=== PATIENT | female | born 1985 | race African-American/Black ===

== ENCOUNTER 2019-06-23 21:16 | Emergency (ER) | payer SELFPAY ==
[2019-06-23] MEDS ORDERED: Ketorolac 30 MG/ML SDV IM ONE (22:11)
[2019-06-23] MEDS ORDERED: Metoclopramide 5 MG Tab PO ONE (22:11)
--- NOTE | 2019-06-23 22:24 | EDM.PDOC ---
ED HPI GENERAL MEDICAL PROBLEM - General Chief Complaint: Respiratory Problem Stated Complaint: FLU LIKE SYMTOMS Time Seen by Provider: 06/23/19 22:21 Source of Information: Reports: Patient History Limitations: Reports: No Limitations - History of Present Illness INITIAL COMMENTS - FREE TEXT/NARRATIVE: Patient is a 34-year-old female with past medical history of PCOS presenting with a chief complaint of headache, body ache, myalgias, cough. Patient states that she has had the symptoms since and they have progressively worsened. Patient reports taking Tylenol [id number] with minimal relief. 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 Patient had a strep test done the day which is negative. Patient has no known exposure to coronavirus patients and has not had any recent travels anywhere. Patient states she has had headaches in the past and this is not the worst headache of her life. Patient states that the headache is generalized nonradiating. The bright lights do bother her. Patient denies any difficulty breathing or shortness of breath. Pmhx: None Pshx: None Family Hx: noncontributory Smoking history? no Etoh use? none Drug use? none In addition to that documented in the HPI above, the additional ROS was obtained : Constitutional: Per HPI Eyes: Denies vision changes ENMT: Denies sore throat CV: Denies chest pain Resp: Denies SOB GI: Denies vomiting or diarrhea : Denies painful urination MSK: Denies recent trauma Skin: Denies new rashes Neuro: Denies new numbness or tingling or weakness Endocrine: Denies unexpected weight loss Heme: Denies bleeding disorders I have reviewed the triage vital signs Const: Well nourished, well developed, appears stated age Eyes: Pupils equal bilaterally 3 mm. No conjunctival injection HENT: NCAT, Neck supple without meningismus CV: Warm, well-perfused extremities RESP: Unlabored respiratory effort MSK: No gross deformities appreciated Skin: Warm, dry. No rashes Neuro: Alert, moving all 4 extremities equally. Psych: Appropriate mood and affect Assessment and plan: Patient is a 34-year-old female presenting with a chief complaint of upper respiratory tract infection symptoms as well as headache. Patient had unremarkable ER course. Patient headache improved after administration of medication. No evidence of meningitis, encephalitis. There is possibility that this is related to the coronavirus and therefore patient was swabbed since she is high risk being in healthcare environment. Influenza test was negative. Patient otherwise is not hypoxic and comfortable in appearance. Patient instructed to self isolate until test results back and fever free for 24 hours. All questions addressed and answered. Patient agrees with plan. headache Pain Score (Numeric/FACES): 10 - Related Data Allergies Allergy/AdvReac Type Severity Reaction Status Date / Time No Known Allergies Allergy Verified 06/23/19 21:56 Home Meds: Home Meds Anti-Htn 06/23/19 [History] Levothyroxine [Synthroid] 50 mcg PO DAILY 06/23/19 [History] ED ROS GENERAL - Review of Systems Review Of Systems: See Below ED EXAM, GENERAL - Physical Exam Exam: See Below Course - Vital Signs Last Recorded V/S: Last Vital Signs Temp 36.8 C 06/23/19 21:27 Pulse 90 06/23/19 21:27 Resp 18 06/23/19 21:27 BP 121/81 06/23/19 21:27 Pulse Ox 99 06/23/19 21:27 - Orders/Labs/Meds Orders: Active Orders 24 hr Category Date Time Status CORONAVIRUS COVID-19 PCR [facility] Stat Lab 06/23/19 22:32 Received Isolation [COMM] Routine Oth 06/23/19 22:11 Active Meds: Medications Discontinued Medications Generic Name Dose Route Start Last Admin Trade Name Rosi PRN Reason Stop Dose Admin Ketorolac Tromethamine 30 mg 06/23/19 22:11 06/23/19 22:31 Toradol IM 06/23/19 22:12 30 mg ONETIME ONE Administration Metoclopramide HCl 5 mg 06/23/19 22:11 06/23/19 22:29 Reglan PO 06/23/19 22:12 5 mg ONETIME ONE Administration Departure - Departure Time of Disposition: 23:17 Disposition: Home, Self-Care 01 Clinical Impression: URI (upper respiratory infection) - Discharge Information Instructions: Upper Respiratory Infection, Adult, [id number] Referrals: PCP,None [Primary Care Provider] - Forms: ED Department Discharge Additional Instructions: The following information is given to patients seen in the emergency department who are being discharged to home. This information is to outline your options for follow-up care. We provide all patients seen in our emergency department with a follow-up referral. The need for follow-up, as well as the timing and circumstances, are variable depending upon the specifics of your emergency department visit. If you don't have a primary care physician on staff, we will provide you with a referral. We always advise you to contact your personal physician following an emergency department visit to inform them of the circumstance of the visit and for follow-up with them and/or the need for any referrals to a consulting specialist. The emergency department will also refer you to a specialist when appropriate. This referral assures that you have the opportunity for follow-up care with a specialist. All of these measure are taken in an effort to provide you with optimal care, which includes your follow-up. Under all circumstances we always encourage you to contact your private physician who remains a resource for coordinating your care. When calling for follow-up care, please make the office aware that this follow-up is from your recent emergency room visit. If for any reason you are refused follow-up, please contact the [facility] at and asked to speak to the emergency department charge nurse. [facility] [address] [place] [address] [place] [address] Sepsis Event Note - Evaluation Sepsis Screening Result: No Definite Risk - Focused Exam Vital Signs: Vital Signs Temp Pulse Resp BP Pulse Ox 06/23/19 21:27 36.8 C 90 18 121/81 99 Date Exam was Performed: 06/23/19 Time Exam was Performed: 23:42 - My Orders Last 24 Hours: My Active Orders 06/23/19 22:11 Isolation [COMM] Routine 06/23/19 22:32 CORONAVIRUS COVID-19 PCR [facility] Stat - Assessment/Plan Last 24 Hours: My Active Orders 06/23/19 22:11 Isolation [COMM] Routine 06/23/19 22:32 CORONAVIRUS COVID-19 PCR [facility] Stat
== END 2019-06-23 23:35 | disposition home or self-care (01) ==
LOC: MW.ED 21:16
DX: J06.9 Acute upper respiratory infection, unspecified (principal); Z79.899 Other long term (current) drug therapy
CPT/HCPCS: 87635; 87804; 96372; 99284; A9270; J1885; 99283; U0002